=== PATIENT | male | born 1985 | race Caucasian/White ===

== ENCOUNTER 2018-07-25 07:55 | Emergency (ER) | payer OTHER, MEDICAID, SELFPAY ==
[2018-07-25 07:59] VITALS: BP 148/104; PULSE 104; RESP 20; TEMP 36.4; O2SAT 97
--- NOTE | 2018-07-25 08:18 | ED.ABDPAIN ---
HPI - Abdominal Pain General Chief Complaint: Abdominal Pain Stated Complaint: ULCER Time Seen by Provider: 07/25/18 08:10 Source: patient Mode of arrival: ambulatory Limitations: no limitations History of Present Illness HPI narrative: Patient is a 33-year-old male who presents with burning in his stomach. He states that he has an ulcer he feels like it has been getting worse over the last 1-2 weeks. He used to drink quite heavily he says he has cut back especially over last 2 weeks. He is not taking ibuprofen but he has in the past. He does eat a lot of hot sauce he says his stomach hurts and anders every time he eats food. He has no nausea or vomiting. His stools are not black. His. He is also requesting inhaler refill MD complaint: abdominal pain Onset (ago): week(s) Location: epigastric Related Data Previous Rx's Medication Instructions Recorded albuterol sulfate 1 puff INHALATION Q4-6H PRN #8.5 07/25/18 gram omeprazole 40 mg PO BID #30 cap 07/25/18 Allergies Allergy/AdvReac Type Severity Reaction Status Date / Time No Known Drug Allergies Allergy Verified 07/25/18 07:58 Review of Systems Review of Systems GENERAL: Denies chills, fatigue, malaise, fever, sweats, travel HEENT: Denies sinus pain, ear pain, sore throat, difficulty swallowing, neck pain RESPIRATORY: Denies dyspnea, cough, wheezing, hemoptysis, sputum. CARDIOVASCULAR: Denies chest pain, palpitations, orthopnea, edema GASTROINTESTINAL: See HPI : Denies dysuria, frequency, incontinence, hematuria, urinary retention, flank pain. MUSCULOSKELETAL: Denies weakness, joint pain, or bony pain SKIN: No rash, no erythema, no pruritus NEUROLOGIC: Denies weakness, dizziness, headache, numbness, change in speech, confusion PSYCHIATRIC: No concerning psychosocial issues. 12 point review of systems is negative except for those stated above and HPI PFSH Medical History Gastric ulcer (Acute) Social History Smoking Status: Current every day smoker alcohol intake: current Exam Initial Vital Signs Initial Vital Signs: Vital Signs Temperature 97.6 F 07/25/18 07:59 Pulse Rate 104 H 07/25/18 07:59 Respiratory Rate 20 07/25/18 07:59 Blood Pressure 148/104 H 07/25/18 07:59 Pulse Oximetry 97 07/25/18 07:59 GENERAL: Well-appearing, well-nourished and in no acute distress. HEENT: Head atraumatic,EOMI, pupils reactive, neck is supple CARDIOVASCULAR: Regular rate and rhythm without murmurs, rubs or gallops. RESPIRATORY: Breath sounds equal bilaterally, no wheezes rales or rhonchi. ABDOMEN: Soft, nontender. Normoactive bowel sounds all 4 quadrants. No guarding or rebound. EXTREMITIES: Normal range of motion, no clubbing or edema. Neurovascularly intact NEUROLOGICAL: Alert and oriented x4.Normal gait and speech. Cranial nerves II through XII grossly intact. SKIN: Warm, dry, no laceration, no petechiae, no rashes or lesions. Course Orders Ordered: Discontinued Medications Al Hydrox/Mg Hydrox/Simethicone 20 ml/ Lidocaine HCl 15 ml 0 ml PO NOW ONE Stop: 07/25/18 08:18 Last Admin: 07/25/18 08:32 Dose: 35 ml Vital Signs - 8 hr 07/25/18 07:59 07/25/18 08:52 Temperature 97.6 F Pulse Rate 104 H 93 H Respiratory Rate 20 18 Blood Pressure 148/104 H 150/101 H Pulse Oximetry 97 98 MDM - Abdominal Pain MDM Narrative Medical decision making narrative: Patient does not appear in any sort of distress. He has no abdominal pain or chest pain. It sounds like gastric ulcer and he has a history of gastric ulcer. Discharge Plan Departure Patient Disposition: Home Clinical Impression: Gastric ulcer Discharge Date/Time: 07/25/18 08:52 Interventions: ED Discharge Assessment Last Done: 07/25/18 08:52 Instructions: DI for Gastric Ulcer Activity Restrictions/Additional Instructions: *You have been diagnosed with gastric ulcer *What to do: Avoid all NSAIDs including Motrin, ibuprofen, Aleve, Advil, naproxen etc. Avoid alcohol *Continue to take medications as directed Omeprazole 40 mg twice a day 30 min on an empty stomach before breakfast and dinner Tylenol 650 mg every 4-6 hours if needed for pain do not exceed more than 4 g in 1 day *Follow up with your primary care provider in 2-3 days *Return to ER if you should have increasing pain, black stool, persistent vomiting or any new, worsening or concerning symptoms Prescriptions: New omeprazole 40 mg capsule,delayed release(DR/EC) 40 mg PO BID Qty: 30 RF: 0 albuterol sulfate 90 mcg/actuation HFA aerosol inhaler 1 puff INHALATION Q4-6H PRN (Reason: shortness of breath or wheezing) Qty: 8.5 RF: 0 Referrals: [facility] [Provider Group] [facility] [Provider Group] [facility] [Provider Group] [facility] [Provider Group] [facility] [Provider Group] [facility] [Provider Group]
[2018-07-25] MEDS: MAG HYDROX/ALUMINUM/SIMETH SUS 20 ML, LIDOCAINE VISCOUS 2% 15 ML PO (08:32)
[2018-07-25 08:52] VITALS: BP 150/101; PULSE 93; RESP 18; O2SAT 98
== END 2018-07-25 08:52 | disposition home or self-care (01) ==
PROVIDERS: Emergency Provider Emergency Medicine
DX: K25.9 Gastric ulcer, unspecified as acute or chronic, without hemorrhage or perforation (principal)
CPT/HCPCS: 99282; 99283

== ENCOUNTER 2018-12-06 14:57 | Emergency (ER) | payer OTHER, MEDICAID, SELFPAY ==
[2018-12-06 15:03] VITALS: BP 143/98; PULSE 94; RESP 16; TEMP 36.8; O2SAT 98
[2018-12-06 16:11] LABS: Add Manual Diff / Slide Review NO; Basophils Absolute Auto 0 /uL (0-100); Basophils Percent Auto 0.5 % (0-2); Eosinophils Absolute Auto 200 /uL (0-450); Eosinophils Percent Auto 2.3 % (2-4); Hematocrit 52.6 % (41-53); Hemoglobin 17.8 g/dL (13.5-17.5); Lymphocytes Absolute Auto 1800 /uL (1100-4500); Lymphocytes Percent Auto 20.5 % (25-40); Mean Corpuscular HGB Conc 33.8 % (30-36); Mean Corpuscular Hemoglobin 31.8 PG (26-34); Mean Corpuscular Volume 94.3 fL (80-100); Monocytes Absolute Auto 1300 /uL (0-900); Monocytes Percent Auto 14.2 % (3-14); Neutrophils Absolute Auto 5500 /uL (1500-7000); Neutrophils Percent Auto 62.5 % (50-75); Platelet Count 269 X10^3/uL (150-400); Red Blood Cell Count 5.59 X10^6/uL (4.5-5.9); Red Cell Distribution Width 13.1 % (11.6-14.8); White Blood Cell Count 8.8 X10^3/uL (4.5-11.0)
[2018-12-06 16:16] LABS: INR 0.9 (0.9-1.3); Prothrombin Time 10.6 SECONDS (10.1-12.7)
[2018-12-06 16:18] LABS: PTT Partial Thromboplastin Tim 30 SECONDS (26.4-36.2)
[2018-12-06 16:24] LABS: Alanine Aminotransferase 33 IU/L (21-72); Albumin 4.9 g/dL (3.5-5.0); Albumin Globulin Ratio 1.4 (1.0-2.8); Alkaline Phosphatase 55 U/L (38-126); Aspartate Aminotransferase 34 IU/L (17-59); Bilirubin Total 0.5 mg/dL (0.2-1.3); Blood Urea Nitrogen 15 mg/dL (9-20); Calcium 10.3 mg/dL (8.4-10.2); Carbon Dioxide 25 mmol/L (22-32); Chloride 100 mmol/L (98-107); Estimated Glomerular Filt Rate > 60.0 mL/min (>60); Globulin 3.6 g/dL (1.7-4.1); Glucose 96 mg/dL (70-100); HEMOLYSIS 24 (0-50); Lipase 206 U/L (23-300); Potassium 4.3 mmol/L (3.4-5.1); Sodium 139 mmol/L (137-145); Total Protein 8.5 g/dL (6.3-8.2)
--- NOTE | 2018-12-06 17:00 | ED_ITS ---
HPI - Abdominal Pain <[facility] - Last Filed: 12/06/18 21:50> General Chief Complaint: Abdominal Pain Stated Complaint: STATES HAS AN ULCER Time Seen by Provider: 12/06/18 16:31 Source: patient and family Mode of arrival: ambulatory Limitations: no limitations History of Present Illness HPI narrative: The patient is a 33-year-old male current smoker who states he has history of gastric ulcers. He states he has burning in his stomach and feels like it has been getting worse since he stopped taking his omeprazole. He states he tried to buy it [id number], but he has not have money for it. He states he i have stopped drinking alcohol, which helps a bit. He states that his stomach anders every time he eats hot sauce or pickles. He states he has had these issues for years. He has never followed up for a scope. He states he has having issues finding a primary care provider. He denies any vomiting or diarrhea. Denies any black tarry stools. Related Data Previous Rx's Medication Instructions Recorded albuterol sulfate 1 puff INHALATION Q4-6H PRN #8.5 07/25/18 gram omeprazole 40 mg PO DAILY #30 cap 12/06/18 Allergies Allergy/AdvReac Type Severity Reaction Status Date / Time No Known Drug Allergies Allergy Verified 12/06/18 15:10 Review of Systems <ARNALDO Rausch - Last Filed: 12/06/18 21:50> Review of Systems GENERAL: Denies chills, fatigue, malaise, fever, sweats. HEENT: Denies sinus pain, ear pain, sore throat, difficulty swallowing, dizzi ness. RESPIRATORY: Denies dyspnea, cough, wheezing, hemoptysis, sputum. CARDIOVASCULAR: Denies chest pain, palpitations, orthopnea, edema GI: See HPI : Denies dysuria, frequency, incontinence, hematuria, urinary retention. MUSCULOSKELETAL: denies weakness, joint pain, or bony pain SKIN: Denies rash, skin lesions, or other NEUROLOGIC: Denies weakness, headache, numbness, change in speech, confusion, seizures, incoordination. PSYCHIATRIC: No concerning psychosocial issues. 12 point review of systems is negative except for those stated above PFSH <[facility] - Last Filed: 12/06/18 21:50> Medical History (Updated 12/06/18 @ 17:01 by ROSEANN Rausch) Gastric ulcer (Acute) Social History Smoking Status: Current every day smoker alcohol intake: current Social History Smoking Status: Current every day smoker alcohol intake: current Exam <ROSEANN Rausch - Last Filed: 12/06/18 21:50> Narrative Exam Narrative: GENERAL: This is a well-nourished, well-developed patient, no acute distress HEAD: Atraumatic. Normocephalic. No temporal or scalp tenderness. EYES: Pupils equal round and reactive. Extraocular motions intact. No scleral icterus. No injection or drainage. NECK: Trachea midline. No JVD or lymphadenopathy. Supple, nontender, no meningeal signs. CARDIOVASCULAR: Regular rate and rhythm without murmurs, gallops, or rubs. RESPIRATORY: Clear to auscultation. Breath sounds equal bilaterally. No wheezes, rales, or rhonchi. No cough. No increased Klever effort. GASTROINTESTINAL: Abdomen soft, diffusely tender, nondistended. No hepato- splenomegaly, or palpable masses. No guarding active bowel sounds.. EXTREMITIES: No clubbing, cyanosis, or edema. No joint tenderness, effusion, or edema noted. BACK: Nontender without deformity or crepitance. No flank tenderness. NEURO: AOx3. SKIN: No rash or erythema. Initial Vital Signs Initial Vital Signs: Vital Signs Temperature 98.3 F 12/06/18 15:03 Pulse Rate 94 H 12/06/18 15:03 Respiratory Rate 16 12/06/18 15:03 Blood Pressure 143/98 H 12/06/18 15:03 Pulse Oximetry 98 12/06/18 15:03 <Major Ambriz DO - Last Filed: 12/07/18 18:14> Initial Vital Signs Initial Vital Signs: Vital Signs Temperature 98.3 F 12/06/18 15:03 Pulse Rate 94 H 12/06/18 15:03 Respiratory Rate 16 12/06/18 15:03 Blood Pressure 143/98 H 12/06/18 15:03 Pulse Oximetry 98 12/06/18 15:03 Course <ROSEANN Rausch - Last Filed: 12/06/18 21:50> Orders Ordered: Discontinued Medications Al Hydrox/Mg Hydrox/Simethicone 20 ml/ Lidocaine HCl 15 ml 0 ml PO NOW ONE Stop: 12/06/18 16:57 Last Admin: 12/06/18 17:07 Dose: 35 ml Vital Signs - 8 hr 12/06/18 15:03 12/06/18 17:25 Temperature 98.3 F Pulse Rate 94 H 87 Respiratory Rate 16 15 Blood Pressure 143/98 H 139/98 H Pulse Oximetry 98 96 <Major Ambriz DO - Last Filed: 12/07/18 18:14> Orders Ordered: Discontinued Medications Al Hydrox/Mg Hydrox/Simethicone 20 ml/ Lidocaine HCl 15 ml 0 ml PO NOW ONE Stop: 12/06/18 16:57 Last Admin: 12/06/18 17:07 Dose: 35 ml Vital Signs - 8 hr 12/06/18 15:03 12/06/18 17:25 Temperature 98.3 F Pulse Rate 94 H 87 Respiratory Rate 16 15 Blood Pressure 143/98 H 139/98 H Pulse Oximetry 98 96 MDM - Abdominal Pain <ROSEANN Rausch - Last Filed: 12/06/18 21:50> Lab Data Result diagrams: 12/06/18 16:02 12/06/18 16:02 Lab Results 12/06/18 12/06/18 12/06/18 Range/Units 16:02 16:02 16:02 WBC 8.8 (4.5-11.0) X10^3/uL RBC 5.59 (4.5-5.9) X10^6/uL Hgb 17.8 H (13.5-17.5) g/dL Hct 52.6 (41-53) % MCV 94.3 (80-100) fL MCH 31.8 (26-34) PG MCHC 33.8 (30-36) % RDW 13.1 (11.6-14.8) % Plt Count 269 (150-400) X10^3/uL Neut % (Auto) 62.5 (50-75) % Lymph % (Auto) 20.5 L (25-40) % [place] % (Auto) 14.2 H (3-14) % Eos % (Auto) 2.3 (2-4) % Baso % (Auto) 0.5 (0-2) % Neut # (Auto) 5500 (0145-7913) /uL Lymph # (Auto) 1800 (9257-2467) /uL [place] # (Auto) 1300 H (0-900) /uL Eos # (Auto) 200 (0-450) /uL Baso # (Auto) 0 (0-100) /uL PT 10.6 (10.1-12.7) SECONDS INR 0.9 (0.9-1.3) APTT 30 (26.4-36.2) SECONDS Sodium 139 (137-145) mmol/L Potassium 4.3 (3.4-5.1) mmol/L Chloride 100 (98-107) mmol/L Carbon Dioxide 25 (22-32) mmol/L BUN 15 (9-20) mg/dL Creatinine 1.00 (0.66-1.25) mg/dL Estimated GFR > 60.0 (>60) mL/min BUN/Creatinine Ratio 15.0 (6-22) Glucose 96 (70-100) mg/dL Calcium 10.3 H (8.4-10.2) mg/dL Total Bilirubin 0.5 (0.2-1.3) mg/dL AST 34 (17-59) IU/L ALT 33 (21-72) IU/L Alkaline Phosphatase 55 (38-126) U/L Total Protein 8.5 H (6.3-8.2) g/dL Albumin 4.9 (3.5-5.0) g/dL Globulin 3.6 (1.7-4.1) g/dL Albumin/Globulin Ratio 1.4 (1.0-2.8) Lipase 206 (23-300) U/L [facility] Narrative Medical decision making narrative: The patient is a 33-year-old male who presents with a chief complaint of gastric ulcer pain. He has ran out of omeprazole and is requesting a refill. I discussed that sometimes we do evaluation to rule out cardiac etiology, but he declines any further workup today. I had a discussed dietary changes with him, encouraging him to ?hot sauce, spicy food fried food citrus foods and acidic food. Discussed return precautions of black tarry stools except dura. He is hemodynamically stable throughout his stay in the emergency department. I did give him a prescription of omeprazole. 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 Patient has no questions or concerns upon discharge. <Major Ambriz DO - Last Filed: 12/07/18 18:14> Lab Data Lab Results 12/06/18 12/06/18 12/06/18 Range/Units 16:02 16:02 16:02 WBC 8.8 (4.5-11.0) X10^3/uL RBC 5.59 (4.5-5.9) X10^6/uL Hgb 17.8 H (13.5-17.5) g/dL Hct 52.6 (41-53) % MCV 94.3 (80-100) fL MCH 31.8 (26-34) PG MCHC 33.8 (30-36) % RDW 13.1 (11.6-14.8) % Plt Count 269 (150-400) X10^3/uL Neut % (Auto) 62.5 (50-75) % Lymph % (Auto) 20.5 L (25-40) % [place] % (Auto) 14.2 H (3-14) % Eos % (Auto) 2.3 (2-4) % Baso % (Auto) 0.5 (0-2) % Neut # (Auto) 5500 (7032-1173) /uL Lymph # (Auto) 1800 (5127-6309) /uL [place] # (Auto) 1300 H (0-900) /uL Eos # (Auto) 200 (0-450) /uL Baso # (Auto) 0 (0-100) /uL PT 10.6 (10.1-12.7) SECONDS INR 0.9 (0.9-1.3) APTT 30 (26.4-36.2) SECONDS Sodium 139 (137-145) mmol/L Potassium 4.3 (3.4-5.1) mmol/L Chloride 100 (98-107) mmol/L Carbon Dioxide 25 (22-32) mmol/L BUN 15 (9-20) mg/dL Creatinine 1.00 (0.66-1.25) mg/dL Estimated GFR > 60.0 (>60) mL/min BUN/Creatinine Ratio 15.0 (6-22) Glucose 96 (70-100) mg/dL Calcium 10.3 H (8.4-10.2) mg/dL Total Bilirubin 0.5 (0.2-1.3) mg/dL AST 34 (17-59) IU/L ALT 33 (21-72) IU/L Alkaline Phosphatase 55 (38-126) U/L Total Protein 8.5 H (6.3-8.2) g/dL Albumin 4.9 (3.5-5.0) g/dL Globulin 3.6 (1.7-4.1) g/dL Albumin/Globulin Ratio 1.4 (1.0-2.8) Lipase 206 (23-300) U/L Discharge Plan Departure Patient Disposition: Home Clinical Impression: Abdominal pain Qualifiers: Abdominal location: generalized Qualified Code(s): R10.84 - Generalized abdominal pain Discharge Date/Time: 12/06/18 17:26 Interventions: ED Discharge Assessment Last Done: 12/06/18 17:25 Instructions: DI for Gastric Ulcer Activity Restrictions/Additional Instructions: I am restarting you on omeprazole. Please avoid all NSAIDs such as Motrin ibuprofen Aleve Advil etc. Please avoid alcohol, citrus foods, acidic foods and her foods irritate her stomach. Please follow up with primary care provider. You can contact the health [employer] faculty member [phone] help find one. Please come back to emergency department for any severe pain, black tarry stools or blood in stool. Please come back to emergency department for any chest pain, shortness of breath or acute concerns. Prescriptions: New omeprazole 40 mg capsule,delayed release(DR/EC) 40 mg PO DAILY Qty: 30 RF: 0 No Action albuterol sulfate 90 mcg/actuation HFA aerosol inhaler 1 puff INHALATION Q4-6H PRN (Reason: shortness of breath or wheezing) Qty: 8.5 RF: 0 <Major Ambriz DO - Last Filed: 12/07/18 18:14> Cosign ED Attending Sal Attestation: I was immediately available in the department for consultation. Documentation has been reviewed. I agree with assessment and plan.
[2018-12-06] MEDS: MAG HYDROX/ALUMINUM/SIMETH SUS 20 ML, LIDOCAINE VISCOUS 2% 15 ML PO (17:07)
[2018-12-06 17:25] VITALS: BP 139/98; PULSE 87; RESP 15; O2SAT 96
== END 2018-12-06 17:26 | disposition home or self-care (01) ==
PROVIDERS: Emergency Provider Nurse Practitioner Family
DX: R10.84 Generalized abdominal pain (principal)
CPT/HCPCS: 36415; 80053; 83690; 85025; 85610; 85730; 99282; 99283